=== PATIENT | male | born 1980 | race Two or more races ===

== ENCOUNTER → 2019-04-03 | Outpatient (CLI) | payer OTHER ==
--- NOTE | 2019-04-03 20:59 | REP ---
LEFT KNEE, FIVE VIEWS: Five views of the left knee performed. There is no acute fracture or dislocation. There is mild spurring of the lateral patellar facet as well as the superior pole of the patella. There appears to be a small joint effusion. IMPRESSION: Mild patellar spurring. No fracture. Small joint effusion. Electronically Signed by Josh Madrigal MD 04/04/2019 03:09 P
== END ==
LOC: M LRY 19:33
PROVIDERS: ATTEND Nurse Practitioner Family
DX: M25.762 Osteophyte, left knee (principal)
CPT/HCPCS: 73564; G0463